=== PATIENT | male | born 1975 | race Caucasian/White ===

== ENCOUNTER → 2016-12-23 07:12 | Outpatient (CLI) | payer OTHER ==
[2015-04-24 12:31] VITALS: BMI 28.2
[~2016-12-23 07:12] MED LIST: BENZTROPINE MESY2 MG PO; GEMFIBROZIL600 MG PO; HALDOL5 MG PO; KLONOPIN1 MG PO; SEROQUEL200 MG PO
== END | disposition home or self-care (01) ==
LOC: D.CT 07:12
DX: N20.1 Calculus of ureter (principal)

== ENCOUNTER 2017-05-05 12:31 | Emergency (ER) | payer MEDICAID ==
[2015-04-24 12:31] VITALS: BMI 28.2
[2017-05-05 13:28] LABS: APPEARANCE CLEAR (CLEAR); COLOR YELLOW (YELLOW); GLUCOSE 1000 mg/dL (NEGATIVE); KETONE NEGATIVE (NEGATIVE); NITRITE NEGATIVE (NEGATIVE); PROTEIN NEGATIVE (NEGATIVE); SPECIFIC GRAVITY 1.025 (1.005-1.020)
[2017-05-05 13:29] LABS: BACTERIA FEW /hpf (NONE SEEN); BILIRUBIN NEGATIVE (NEGATIVE); EPITHELIAL CELLS 0-5 /hpf (0-5); HYALINE CAST 0-5 /lpf (NONE SEEN); MUCUS <1+ /lpf (NONE SEEN); RED CELLS - URINE 0-5 /hpf (0-5)
[2017-05-05 13:48] LABS: BASOPHILS 0.4 % (0-2); EOSINOPHILS 2.3 % (0-7); HEMATOCRIT 44.3 % (42.0-54.0); HEMOGLOBIN 14.6 g/dL (13.5-17.5); IMMATURE GRANULOCYTES 0.7 % (0-5); LYMPHOCYTES 18.6 % (15-50); MCH 29.1 pg (26.0-34.0); MCV 88.4 fL (80.0-100.0); MEAN PLATELET VOLUME 10.8 fL (7.4-10.4); MONOCYTES 8.1 % (2-11); NEUTROPHILS 69.9 % (40-80); RBC 5.01 10x6/uL (4.20-6.10); RDW 11.8 % (11.5-14.5); WBC 7.5 10x3/uL (4.8-10.8)
[2017-05-05 13:50] LABS: PLATELET COUNT 117 10x3/uL (130-400)
[2017-05-05 13:58] LABS: CHLORIDE - SERUM 102 mmol/L (98-107); POTASSIUM - SERUM 4.4 mmol/L (3.5-5.1); SODIUM 139 mmol/L (136-145)
[2017-05-05 14:08] LABS: ALBUMIN 3.9 g/dL (3.4-5.0); ALKALINE PHOSPHATASE 94 U/L (46-116); ALT (SGPT) 35 U/L (10-68); BILIRUBIN - TOTAL 0.19 mg/dL (0.2-1.3); CALC OSMOLALITY 284 mosm/kg (275-300); CALCIUM 9.7 mg/dL (8.5-10.1); CARBON DIOXIDE 24.2 mmol/L (21.0-32.0); CREATININE - SERUM 1.1 mg/dL (0.6-1.3); PROTEIN - SERUM 7.6 g/dL (6.4-8.2); UREA NITROGEN 15 mg/dL (7-18); eGFR NON AFRICAN AMERICAN 77 mL/min (90-120)
[2017-05-05 14:21] LABS: GLUCOSE 201 mg/dL (74-106)
== END 2017-05-05 15:20 | disposition home or self-care (01) ==
LOC: D.ER 12:31
PROVIDERS: Emergency Medicine
DX: N20.1 Calculus of ureter (principal); E11.9 Type 2 diabetes mellitus without complications; Z79.4 Long term (current) use of insulin; F12.90 Cannabis use, unspecified, uncomplicated

== ENCOUNTER 2017-05-16 13:27 | Emergency (ER) | payer OTHER ==
[2015-04-24 12:31] VITALS: BMI 28.2
[2017-05-16 14:11] LABS: APPEARANCE CLEAR (CLEAR); BILIRUBIN NEGATIVE (NEGATIVE); COLOR YELLOW (YELLOW); GLUCOSE 100 mg/dL (NEGATIVE); KETONE NEGATIVE (NEGATIVE); NITRITE NEGATIVE (NEGATIVE); PROTEIN NEGATIVE (NEGATIVE); SPECIFIC GRAVITY 1.015 (1.005-1.020); UROBILINOGEN NORMAL (NORMAL)
[2017-05-16 14:12] LABS: BACTERIA FEW /hpf (NONE SEEN); EPITHELIAL CELLS 0-5 /hpf (0-5)
[2017-05-16 15:04] LABS: BASOPHILS 0.6 % (0-2); EOSINOPHILS 2.7 % (0-7); IMMATURE GRANULOCYTES 0.1 % (0-5); LYMPHOCYTES 28.3 % (15-50); MCH 29.7 pg (26.0-34.0); MCHC 33.3 g/dL (31.0-37.0); MEAN PLATELET VOLUME 10.6 fL (7.4-10.4); MONOCYTES 8.2 % (2-11); NEUTROPHILS 60.1 % (40-80); RBC 4.72 10x6/uL (4.20-6.10); RDW 11.6 % (11.5-14.5); WBC 8.3 10x3/uL (4.8-10.8)
[2017-05-16 15:05] LABS: PLATELET COUNT 208 10x3/uL (130-400)
[2017-05-16 15:17] LABS: ALBUMIN 3.6 g/dL (3.4-5.0); ALKALINE PHOSPHATASE 86 U/L (46-116); ALT (SGPT) 25 U/L (10-68); CALC OSMOLALITY 276 mosm/kg (275-300); CALCIUM 8.6 mg/dL (8.5-10.1); CARBON DIOXIDE 26.1 mmol/L (21.0-32.0); CHLORIDE - SERUM 103 mmol/L (98-107); PROTEIN - SERUM 7.4 g/dL (6.4-8.2); SODIUM 138 mmol/L (136-145); UREA NITROGEN 10 mg/dL (7-18); eGFR NON AFRICAN AMERICAN 86 mL/min (90-120)
[2017-05-16 15:22] LABS: GLUCOSE 140 mg/dL (74-106)
[2017-05-17] MEDS ORDERED: VALIUM10 MG PO (16:50)
[2017-05-17] MEDS ORDERED: BACTRIM DS TABL1 TAB PO (16:51)
[2017-05-17] MEDS ORDERED: VIBRAMYCIN 100100 MG PO (16:52)
[2017-05-17] MEDS ORDERED: NORCO 7.5/325 T1 TA1 PO (16:52)
== END 2017-05-16 18:20 | disposition home or self-care (01) ==
LOC: D.ER 13:27
PROVIDERS: Family Medicine
DX: L03.012 Cellulitis of left finger (principal); N20.0 Calculus of kidney; I10 Essential (primary) hypertension; I25.10 Atherosclerotic heart disease of native coronary artery without angina pectoris; E11.9 Type 2 diabetes mellitus without complications; Z79.4 Long term (current) use of insulin

== ENCOUNTER 2017-05-17 16:01 | Inpatient (IN) | payer OTHER ==
[~2017-05-17] VITALS: Ht 188 cm; Wt 97.1 kg
[2017-05-17 16:41] LABS: BASOPHILS 0.5 % (0-2); EOSINOPHILS 3.4 % (0-7); HEMATOCRIT 40.7 % (42.0-54.0); HEMOGLOBIN 13.6 g/dL (13.5-17.5); IMMATURE GRANULOCYTES 0.3 % (0-5); LYMPHOCYTES 31.6 % (15-50); MCH 29.4 pg (26.0-34.0); MCHC 33.4 g/dL (31.0-37.0); MCV 87.9 fL (80.0-100.0); MEAN PLATELET VOLUME 10.5 fL (7.4-10.4); MONOCYTES 8.3 % (2-11); NEUTROPHILS 55.9 % (40-80); PLATELET COUNT 185 10x3/uL (130-400); RBC 4.63 10x6/uL (4.20-6.10); RDW 11.7 % (11.5-14.5); WBC 7.4 10x3/uL (4.8-10.8)
[2017-05-17] MEDS ORDERED: VALIUM10 MG PO (16:50)
[2017-05-17] MEDS ORDERED: BACTRIM DS TABL1 TAB PO (16:51)
[2017-05-17] MEDS ORDERED: NORCO 7.5/325 T1 TA1 PO (16:52)
[2017-05-17] MEDS ORDERED: VIBRAMYCIN 100100 MG PO (16:52)
[2017-05-17 16:59] VITALS: BMI 27.5
[2017-05-17 17:27] LABS: CALCIUM 8.6 mg/dL (8.5-10.1); CARBON DIOXIDE 25.7 mmol/L (21.0-32.0); CHLORIDE - SERUM 103 mmol/L (98-107); SODIUM 137 mmol/L (136-145); eGFR NON AFRICAN AMERICAN 86 mL/min (90-120)
[2017-05-17 17:31] LABS: CALC OSMOLALITY 286 mosm/kg (275-300); GLUCOSE 289 mg/dL (74-106); UREA NITROGEN 18 mg/dL (7-18)
[2017-05-17 17:57] LABS: C-REACTIVE PROTEIN < 0.2 mg/dL (0.0-0.9)
[2017-05-17 19:09] LABS: ERYTHROCYTE SEDIMENTATION RATE 14 mm/hr (0-15)
[2017-05-18] VITALS: BP 202/102
[2017-05-18 04:00] VITALS: BP 213/121
[2017-05-18 08:02] VITALS: BP 143/59
[2017-05-18] MEDS ORDERED: ZESTRIL40 MG PO (10:36)
[2017-05-18] MEDS ORDERED: XANAX2 MG PO (10:37)
[2017-05-18 10:59] VITALS: BMI 27.4
[2017-05-18 11:34] VITALS: BP 166/97
[2017-05-18 12:54] VITALS: Ht 188 cm; Wt 97.1 kg
== END 2017-05-18 12:49 | disposition left against medical advice (07) | DRG 541 ==
LOC: D.M2 16:01 → D.SDCHOLD 16:01 → D.M2 18:01
PROVIDERS: Orthopaedic Surgery
PROC: 0H9GXZZ Drainage of Left Hand Skin, External Approach (ICD-10-PCS; principal; 2017-05-16)
DX: M86.9 Osteomyelitis, unspecified (principal); L03.012 Cellulitis of left finger; E11.9 Type 2 diabetes mellitus without complications; I10 Essential (primary) hypertension; F31.9 Bipolar disorder, unspecified; Z87.891 Personal history of nicotine dependence

== ENCOUNTER 2017-05-22 09:45 | Inpatient (IN) | payer OTHER ==
[~2017-05-22] VITALS: Ht 188 cm; Wt 97.3 kg
[~2017-05-22 09:45] MED LIST changes: +BACTRIM DS TABL1 TAB PO; +NORCO 7.5/325 T1 TA1 PO; +VALIUM10 MG PO; +VIBRAMYCIN 100100 MG PO; +XANAX2 MG PO; +ZESTRIL40 MG PO
[2017-05-22 13:49] LABS: BASOPHILS 0.7 % (0-2); EOSINOPHILS 3.4 % (0-7); HEMATOCRIT 41.5 % (42.0-54.0); IMMATURE GRANULOCYTES 0.2 % (0-5); LYMPHOCYTES 35.4 % (15-50); MCH 29.2 pg (26.0-34.0); MCHC 33.7 g/dL (31.0-37.0); MCV 86.5 fL (80.0-100.0); MEAN PLATELET VOLUME 10.3 fL (7.4-10.4); MONOCYTES 9.5 % (2-11); NEUTROPHILS 50.8 % (40-80); PLATELET COUNT 189 10x3/uL (130-400); RDW 11.9 % (11.5-14.5)
[2017-05-22 13:57] LABS: APTT 30.1 SECONDS (22.8-39.4); INR 0.99 (0.85-1.17); PROTIME 12.7 SECONDS (11.6-15.0)
[2017-05-22 14:04] LABS: ALBUMIN 3.8 g/dL (3.4-5.0); ALKALINE PHOSPHATASE 80 U/L (46-116); ALT (SGPT) 39 U/L (10-68); BILIRUBIN - TOTAL 0.55 mg/dL (0.2-1.3); CALC OSMOLALITY 247 mosm/kg (275-300); CALCIUM 9.1 mg/dL (8.5-10.1); CARBON DIOXIDE 24.2 mmol/L (21.0-32.0); CHLORIDE - SERUM 100 mmol/L (98-107); POTASSIUM - SERUM 3.4 mmol/L (3.5-5.1); PROTEIN - SERUM 7.2 g/dL (6.4-8.2); SODIUM 121 mmol/L (136-145); UREA NITROGEN 15 mg/dL (7-18); eGFR NON AFRICAN AMERICAN 86 mL/min (90-120)
[2017-05-22 14:05] LABS: GLUCOSE 154 mg/dL (74-106)
[2017-05-22 15:49] VITALS: BP 152/94; Ht 188 cm; Wt 97.3 kg
== END 2017-05-22 17:45 | disposition left against medical advice (07) | DRG 603 ==
LOC: D.ER 09:45 → D.MS 13:50
PROVIDERS: Emergency Medicine
DX: L03.012 Cellulitis of left finger (principal); M86.9 Osteomyelitis, unspecified; E11.69 Type 2 diabetes mellitus with other specified complication; Z79.4 Long term (current) use of insulin; E11.40 Type 2 diabetes mellitus with diabetic neuropathy, unspecified

== ENCOUNTER 2017-07-10 23:01 | Inpatient (IN) | payer OTHER ==
[~2017-07-10] VITALS: Ht 182.9 cm; Wt 90.9 kg
[2017-07-11 00:26] LABS: BASOPHILS 0.5 % (0-2); EOSINOPHILS 1.9 % (0-7); HEMOGLOBIN 13.4 g/dL (13.5-17.5); IMMATURE GRANULOCYTES 0.3 % (0-5); MCH 29.1 pg (26.0-34.0); MCHC 33.5 g/dL (31.0-37.0); MONOCYTES 8.1 % (2-11); NEUTROPHILS 63.2 % (40-80); PLATELET COUNT 194 10x3/uL (130-400); RDW 12.6 % (11.5-14.5)
[2017-07-11 01:00] LABS: ALBUMIN 3.6 g/dL (3.4-5.0); ALKALINE PHOSPHATASE 86 U/L (46-116); ALT (SGPT) 28 U/L (10-68); CALC OSMOLALITY 285 mosm/kg (275-300); CALCIUM 8.1 mg/dL (8.5-10.1); CARBON DIOXIDE 24.4 mmol/L (21.0-32.0); CHLORIDE - SERUM 103 mmol/L (98-107); GLUCOSE 242 mg/dL (74-106); PROTEIN - SERUM 6.8 g/dL (6.4-8.2); SODIUM 139 mmol/L (136-145); UREA NITROGEN 13 mg/dL (7-18); eGFR NON AFRICAN AMERICAN 86 mL/min (90-120)
[2017-07-11] MEDS ORDERED: HYDROCODONE-APA1 TAB PO (02:14)
[2017-07-11] MEDS ORDERED: NOVOLIN 70/30 110 ML SC ×2 (02:16)
[2017-07-11] MEDS ORDERED: VALIUM10 MG PO (02:17)
[2017-07-11] MEDS ORDERED: NEXIUM20 MG PO (02:17)
[2017-07-11 02:41] VITALS: BP 195/117; BMI 27.2
[2017-07-11 04:26] VITALS: BP 150/79
[2017-07-11 08:26] VITALS: BP 148/81
[2017-07-11 10:24] VITALS: Ht 182.9 cm; Wt 90.9 kg
[2017-07-11 12:00] VITALS: BP 153/84
[2017-07-11 16:14] VITALS: BP 142/83
[2017-07-11 21:12] VITALS: BP 136/100
[2017-07-12 05:16] LABS: BASOPHILS 0.5 % (0-2); EOSINOPHILS 2.9 % (0-7); HEMATOCRIT 38.2 % (42.0-54.0); HEMOGLOBIN 12.8 g/dL (13.5-17.5); IMMATURE GRANULOCYTES 0.6 % (0-5); MCH 28.9 pg (26.0-34.0); MCHC 33.5 g/dL (31.0-37.0); MCV 86.2 fL (80.0-100.0); MEAN PLATELET VOLUME 10.3 fL (7.4-10.4); MONOCYTES 7.9 % (2-11); NEUTROPHILS 68.1 % (40-80); PLATELET COUNT 182 10x3/uL (130-400); RBC 4.43 10x6/uL (4.20-6.10); WBC 8.6 10x3/uL (4.8-10.8)
[2017-07-12 05:25] LABS: CALC OSMOLALITY 287 mosm/kg (275-300); CALCIUM 8.5 mg/dL (8.5-10.1); CARBON DIOXIDE 23.8 mmol/L (21.0-32.0); CHLORIDE - SERUM 104 mmol/L (98-107); GLUCOSE 239 mg/dL (74-106); POTASSIUM - SERUM 3.6 mmol/L (3.5-5.1); SODIUM 140 mmol/L (136-145); UREA NITROGEN 14 mg/dL (7-18); eGFR NON AFRICAN AMERICAN 86 mL/min (90-120)
== END 2017-07-12 10:30 | disposition left against medical advice (07) | DRG 565 ==
LOC: D.ER 23:01 → OBSVTIME 07-11 01:22 → D.MS 07-11 01:22
PROVIDERS: Internal Medicine Nephrology; Physician Assistant
DX: T87.42 Infection of amputation stump, left upper extremity (principal); M86.9 Osteomyelitis, unspecified; F17.203 Nicotine dependence unspecified, with withdrawal; L03.012 Cellulitis of left finger; E11.69 Type 2 diabetes mellitus with other specified complication; Z79.4 Long term (current) use of insulin; E11.42 Type 2 diabetes mellitus with diabetic polyneuropathy; I10 Essential (primary) hypertension; E78.5 Hyperlipidemia, unspecified

== ENCOUNTER 2017-08-01 12:45 | Emergency (ER) | payer OTHER ==
[2017-07-11 10:24] VITALS: BMI 27.2
[~2017-08-01 12:45] MED LIST changes: +HYDROCODONE-APA1 TAB PO; +NEXIUM20 MG PO; +NOVOLIN 70/30 110 ML SC
[2017-08-01 13:20] LABS: BASOPHILS 0.3 % (0-2); EOSINOPHILS 1.9 % (0-7); HEMATOCRIT 39.9 % (42.0-54.0); HEMOGLOBIN 13.7 g/dL (13.5-17.5); IMMATURE GRANULOCYTES 0.5 % (0-5); MCH 29.5 pg (26.0-34.0); MCHC 34.3 g/dL (31.0-37.0); MCV 85.8 fL (80.0-100.0); MONOCYTES 9.2 % (2-11); NEUTROPHILS 75.1 % (40-80); PLATELET COUNT 186 10x3/uL (130-400); RBC 4.65 10x6/uL (4.20-6.10); RDW 13.2 % (11.5-14.5); WBC 11.7 10x3/uL (4.8-10.8)
[2017-08-01 13:37] LABS: ALBUMIN 3.6 g/dL (3.4-5.0); ANION GAP 13.8 mmol/L (8-16); BILIRUBIN - TOTAL 0.47 mg/dL (0.2-1.3); CALCIUM 9.1 mg/dL (8.5-10.1); CARBON DIOXIDE 26.5 mmol/L (21.0-32.0); CREATININE - SERUM 1.4 mg/dL (0.6-1.3); POTASSIUM - SERUM 3.3 mmol/L (3.5-5.1); PROTEIN - SERUM 7.1 g/dL (6.4-8.2)
[2017-08-01 13:50] LABS: APPEARANCE CLOUDY (CLEAR); BILIRUBIN NEGATIVE (NEGATIVE); COLOR DK YELLOW (YELLOW); GLUCOSE 1000 mg/dL (NEGATIVE); KETONE NEGATIVE (NEGATIVE); NITRITE NEGATIVE (NEGATIVE); PROTEIN 2+ mg/dL (NEGATIVE); UROBILINOGEN NORMAL (NORMAL)
[2017-08-01 13:53] LABS: BACTERIA MODERATE /hpf (NONE SEEN); EPITHELIAL CELLS 0-5 /hpf (0-5); RED CELLS - URINE >50 /hpf (0-5); WHITE CELLS - URINE 0-5 /hpf (0-5)
== END 2017-08-01 16:38 | disposition home or self-care (01) ==
LOC: D.ER 12:45
PROVIDERS: Family Medicine
DX: N20.1 Calculus of ureter (principal); F17.200 Nicotine dependence, unspecified, uncomplicated; I10 Essential (primary) hypertension; E11.9 Type 2 diabetes mellitus without complications; Z79.4 Long term (current) use of insulin

== ENCOUNTER 2017-08-06 13:38 | Emergency (ER) | payer OTHER ==
[2017-07-11 10:24] VITALS: BMI 27.2
[2017-08-06 14:32] LABS: BASOPHILS 0.5 % (0-2); EOSINOPHILS 2.1 % (0-7); HEMATOCRIT 41.4 % (42.0-54.0); IMMATURE GRANULOCYTES 0.7 % (0-5); LYMPHOCYTES 20.4 % (15-50); MCH 29.4 pg (26.0-34.0); MCHC 33.8 g/dL (31.0-37.0); MEAN PLATELET VOLUME 10.3 fL (7.4-10.4); MONOCYTES 11.4 % (2-11); NEUTROPHILS 64.9 % (40-80); PLATELET COUNT 182 10x3/uL (130-400); RBC 4.76 10x6/uL (4.20-6.10); RDW 13.1 % (11.5-14.5); WBC 10.2 10x3/uL (4.8-10.8)
[2017-08-06 14:47] LABS: ALBUMIN 3.6 g/dL (3.4-5.0); ANION GAP 10.7 mmol/L (8-16); BILIRUBIN - TOTAL 0.48 mg/dL (0.2-1.3); CALCIUM 8.9 mg/dL (8.5-10.1); CARBON DIOXIDE 28.9 mmol/L (21.0-32.0); CREATININE - SERUM 1.4 mg/dL (0.6-1.3); POTASSIUM - SERUM 3.6 mmol/L (3.5-5.1); PROTEIN - SERUM 7.3 g/dL (6.4-8.2)
[2017-08-06 15:44] LABS: APPEARANCE CLEAR (CLEAR); BILIRUBIN NEGATIVE (NEGATIVE); COLOR YELLOW (YELLOW); GLUCOSE 1000 mg/dL (NEGATIVE); KETONE NEGATIVE (NEGATIVE); NITRITE NEGATIVE (NEGATIVE); PROTEIN NEGATIVE (NEGATIVE); SPECIFIC GRAVITY 1.025 (1.005-1.020); UROBILINOGEN NORMAL (NORMAL)
[2017-08-06 15:45] LABS: BACTERIA FEW /hpf (NONE SEEN); RED CELLS - URINE >50 /hpf (0-5); WHITE CELLS - URINE 0-5 /hpf (0-5)
== END 2017-08-06 18:45 | disposition home or self-care (01) ==
LOC: D.ER 13:38
PROVIDERS: Family Medicine
DX: N23 Unspecified renal colic (principal); N20.1 Calculus of ureter; L03.119 Cellulitis of unspecified part of limb; I10 Essential (primary) hypertension; I25.10 Atherosclerotic heart disease of native coronary artery without angina pectoris; E11.9 Type 2 diabetes mellitus without complications; Z79.4 Long term (current) use of insulin; F17.200 Nicotine dependence, unspecified, uncomplicated

== ENCOUNTER 2017-09-03 02:15 | Emergency (ER) | payer OTHER ==
[~2017-09-03] VITALS: Ht 182.9 cm; Wt 95.3 kg
[2017-09-03 02:31] VITALS: Ht 182.9 cm; Wt 95.3 kg
[2017-09-03] MEDS ORDERED: BACTRIM DS TABL1 TAB PO (02:59)
[2017-09-03 03:49] VITALS: BP 132/81
== END 2017-09-03 03:29 | disposition home or self-care (01) ==
LOC: D.ER 02:15
DX: L03.012 Cellulitis of left finger (principal); F17.200 Nicotine dependence, unspecified, uncomplicated

== ENCOUNTER 2017-09-14 17:42 | Emergency (ER) | payer OTHER ==
[~2017-09-14] VITALS: Ht 182.9 cm; Wt 95.5 kg
[2017-09-14 18:24] VITALS: BP 167/109; Ht 182.9 cm; Wt 95.5 kg
[2017-09-14 20:22] LABS: APPEARANCE CLEAR (CLEAR); BILIRUBIN NEGATIVE (NEGATIVE); COLOR DK YELLOW (YELLOW); GLUCOSE 1000 mg/dL (NEGATIVE); KETONE NEGATIVE (NEGATIVE); NITRITE NEGATIVE (NEGATIVE); PROTEIN NEGATIVE (NEGATIVE); UROBILINOGEN NORMAL (NORMAL)
[2017-09-14 20:23] LABS: BACTERIA FEW /hpf (NONE SEEN); CALCIUM OXALATE CRYSTALS 0-5 /hpf (NONE SEEN); EPITHELIAL CELLS 0-5 /hpf (0-5); WHITE CELLS - URINE 0-5 /hpf (0-5)
== END 2017-09-14 20:37 | disposition left against medical advice (07) ==
LOC: D.ER 17:42
PROVIDERS: Family Medicine
DX: N20.0 Calculus of kidney (principal)

== ENCOUNTER 2017-11-28 20:22 | Emergency (ER) | payer OTHER ==
[~2017-11-28] VITALS: Ht 182.9 cm; Wt 95.3 kg
[2017-11-28 20:26] VITALS: Ht 182.9 cm; Wt 95.3 kg
[2017-11-28] MEDS ORDERED: VIBRAMYCIN 100100 MG PO (21:12)
[2017-11-28] MEDS ORDERED: TYLENOL W/CODEI1 TAB PO (21:12)
[2017-11-28 21:46] VITALS: BP 173/91
== END 2017-11-28 21:47 | disposition home or self-care (01) ==
LOC: D.ER 20:22
DX: L03.115 Cellulitis of right lower limb (principal); E11.9 Type 2 diabetes mellitus without complications; I10 Essential (primary) hypertension; K21.9 Gastro-esophageal reflux disease without esophagitis

== ENCOUNTER 2017-12-13 01:03 | Emergency (ER) | payer MEDICAID ==
[~2017-12-13] VITALS: Ht 182.9 cm; Wt 90.9 kg
[~2017-12-13 01:03] MED LIST changes: +TYLENOL W/CODEI1 TAB PO
[2017-12-13 01:08] VITALS: Ht 182.9 cm; Wt 90.9 kg
[2017-12-13 01:53] LABS: BASOPHILS 0.5 % (0-2); EOSINOPHILS 1.2 % (0-7); HEMOGLOBIN 12.9 g/dL (13.5-17.5); IMMATURE GRANULOCYTES 0.4 % (0-5); LYMPHOCYTES 26.5 % (15-50); MCH 29.5 pg (26.0-34.0); MCHC 33.9 g/dL (31.0-37.0); MEAN PLATELET VOLUME 9.4 fL (7.4-10.4); MONOCYTES 9.6 % (2-11); NEUTROPHILS 61.8 % (40-80); PLATELET COUNT 217 10x3/uL (130-400); RBC 4.37 10x6/uL (4.20-6.10); RDW 12.4 % (11.5-14.5); WBC 10.9 10x3/uL (4.8-10.8)
[2017-12-13 01:54] LABS: APPEARANCE CLEAR (CLEAR); BILIRUBIN NEGATIVE (NEGATIVE); COLOR YELLOW (YELLOW); GLUCOSE 500 mg/dL (NEGATIVE); KETONE NEGATIVE (NEGATIVE); NITRITE NEGATIVE (NEGATIVE); PROTEIN NEGATIVE (NEGATIVE); SPECIFIC GRAVITY 1.025 (1.005-1.020); UROBILINOGEN NORMAL (NORMAL)
[2017-12-13 02:04] LABS: ALBUMIN 3.3 g/dL (3.4-5.0); ALKALINE PHOSPHATASE 86 U/L (46-116); ALT (SGPT) 22 U/L (10-68); AMYLASE - SERUM 45 U/L (25-115); BILIRUBIN - TOTAL 0.55 mg/dL (0.2-1.3); CALC OSMOLALITY 276 mosm/kg (275-300); CALCIUM 8.5 mg/dL (8.5-10.1); CARBON DIOXIDE 28.7 mmol/L (21.0-32.0); CHLORIDE - SERUM 101 mmol/L (98-107); CREATININE - SERUM 0.9 mg/dL (0.6-1.3); LIPASE 153 U/L (73-393); POTASSIUM - SERUM 3.8 mmol/L (3.5-5.1); PROTEIN - SERUM 6.9 g/dL (6.4-8.2); SODIUM 138 mmol/L (136-145); UREA NITROGEN 11 mg/dL (7-18); eGFR NON AFRICAN AMERICAN > 90 mL/min (90-120)
[2017-12-13 02:11] LABS: GLUCOSE 142 mg/dL (74-106)
[2017-12-13] MEDS ORDERED: NAPROSYN500 MG PO (02:39)
[2017-12-13 03:08] VITALS: BP 138/72
== END 2017-12-13 03:07 | disposition home or self-care (01) ==
LOC: D.ER 01:03
PROVIDERS: Family Medicine
DX: S43.401A Unspecified sprain of right shoulder joint, initial encounter (principal); W10.9XXA Fall (on) (from) unspecified stairs and steps, initial encounter; Y93.89 Activity, other specified; Y92.019 Unspecified place in single-family (private) house as the place of occurrence of the external cause; S29.012A Strain of muscle and tendon of back wall of thorax, initial encounter; E11.9 Type 2 diabetes mellitus without complications; I10 Essential (primary) hypertension; K21.9 Gastro-esophageal reflux disease without esophagitis; F17.200 Nicotine dependence, unspecified, uncomplicated; R10.9 Unspecified abdominal pain